=== PATIENT | male | born 1970 | race Caucasian/White ===

== ENCOUNTER 2018-08-09 18:46 | Emergency (ER) | payer BC ==
--- NOTE | 2018-08-09 19:50 | ED ---
Neurological HPI - HPI Summary HPI Summary: This patient is a 48 year old M presenting to [facility] with a chief complaint of his legs giving out at 15:00 today. He was jogging from his mailbox back to his house (about 100 feet) when both legs gave out on him. He fell, landed on his right shoulder, and did a somersault. Patient reports that it happened so fast that he doesnt know where on the shoulder he landed. 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 That time, he his AC joint. He reports being regularly active, playing football in the backyard with his sons. Patient reports right shoulder pain and diarrhea the last couple of days. Patient denies numbness, numbness in extremities, weakness , difficulty ambulating, difficulty with speech, ringing in ears, imbalance, drinking a lot of diet soda, recent head trauma, visual changes, and a headache. Patient reports a PMHx of a slight heart murmur. Patient reports a FHx of early onset Alzheimers and strokes. - History of Current Complaint Chief Complaint: EDNeurologicalDeficit Stated Complaint: FALL/RT SHLDR PAIN Time Seen by Provider: 08/09/18 19:36 Hx Obtained From: Patient Onset/Duration: Sudden Onset, Resolved Current Severity: None Pain Intensity: 8 Pain Scale Used: 0-10 Numeric Associated Signs and Symptoms: Negative: Unsteady Gait, Headache, Weakness, Numbness, Trauma: Recent - Allergy/Home Medications Allergies/Adverse Reactions: Allergies Allergy/AdvReac Type Severity Reaction Status Date / Time No Known Allergies Allergy Verified 08/09/18 18:57 Home Medications: Home Medications Simvastatin TAB(NF) [Zocor 20 MG (NF)] 40 mg PO DAILY 08/09/18 [History Confirmed 08/09/18] PMH/Surg Hx/FS Hx/Imm Hx Endocrine/Hematology History: Denies: Hx Diabetes Cardiovascular History: Reports: Other Cardiovascular Problems/Disorders - Slight heart murmur Infectious Disease History: No Infectious Disease History: Denies: Traveled Outside the [place] in Last 30 Days - Family History Known Family History: Positive: Other - Alzheimer's and strokes. Denies MS - Social History Lives: With Family Alcohol Use: Occasionally Hx Substance Use: No Substance Use Type: Reports: None Review of Systems Positive: Other - Denies drinking a lot of diet soda Positive: Diarrhea Positive: Other - Rigth shoulder pain Neurological: Other - LE bilat collapsed. Denies difficulty ambulating, difficulty with speech, ringing in ears, imbalance, recent head trauma, and visual changes. Negative: Headache, Weakness, Numbness All Other Systems Reviewed And Are Negative: Yes Physical Exam - Summary Physical Exam Summary: Appearance: Well appearing, no pain distress Skin: Abrasion on the dorsal fifth metacarpal head. Head/face: normal Eyes: EOMI, KAYLEEN ENT: mucous membranes moist Neck: supple, non-tender Respiratory: CTA, breath sounds present Cardiovascular: RRR, pulses symmetrical Abdomen: non-tender, soft Bowel Sounds: present Musculoskeletal: Tender at right AC joint. Decreased strength due to pain in right shoulder. Neuro: normal, sensory motor intact, A&Ox3 GCS: 15 Triage Information Reviewed: Yes Vital Signs On Initial Exam: Initial Vitals Temp Pulse Resp BP Pulse Ox 98.2 F 69 16 139/95 99 08/09/18 18:52 08/09/18 18:52 08/09/18 18:52 08/09/18 18:52 08/09/18 18:52 Vital Signs Reviewed: Yes Diagnostics - Vital Signs Vital Signs Temp Pulse Resp BP Pulse Ox 08/09/18 18:52 98.2 F 69 16 139/95 99 - Laboratory Result Diagrams: 08/09/18 19:48 08/09/18 19:48 Lab Statement: Any lab studies that have been ordered have been reviewed, and results considered in the medical decision making process. - Radiology Shoulder X-Ray Radiology Interpretation Completed By: ED Physician Summary of Radiographic Findings: 21:16. AC separation. Pending official report. - CT Head CT CT Interpretation Completed By: ED Physician Summary of CT Findings: 21:17. No acute findings. Pending official report. Brain CT CT Interpretation Completed By: ED Physician Summary of CT Findings: 21:17. No acute findings. Pending official report. Course/Dx - Course Course Of Treatment: Nurse's not reviewed. Before meals separation on x-ray. Sling applied by me. Extremity neurovascularly intact. Neurologic exam is normal with normal DTRs and the patellar tendons, normal gait and normal strength and sensation. CT brain negative. Follow-up with primary care physician for ongoing evaluation. - Differential Dx Differential Diagnoses Neuro: Positive: Other - MS, myasthenia gravis, electrolyte abnormality, aspartamine toxicity - Diagnoses Provider Diagnoses: Acromioclavicular separation, Weakness Discharge - Sign-Out/Discharge Documenting (check all that apply): Patient Departure - D/C - Discharge Plan Condition: Improved Disposition: HOME Patient Education Materials: Acromioclavicular Separation (ED), Weakness (ED) Referrals: [facility] [Outside] [facility] [place] [facility]FERR[facility] [Outside] Additional Instructions: Sling for comfort. Ice to area of sore shoulder. Weight-bear as tolerated. Tylenol, ibuprofen as needed for discomfort. Follow-up with family doctor as soon as possible to evaluate leg weakness. Referral line has been provided to you. [facility] can also provide quick follow-up. - Billing Disposition and Condition Condition: IMPROVED Disposition: Home - Attestation Statements Document Initiated by Wil: Yes Documenting Scribe: Kavon Rocha Provider For Whom Marioe is Documenting (Include Credential): Hank Gan MD Scribe Attestation: IKavon, scribed for Hank Gan MD on 08/10/18 at 0118. Scribe Documentation Reviewed: Yes Provider Attestation: The documentation as recorded by the Kavon madrid accurately reflects the service I personally performed and the decisions made by me, Hank Gan MD Status of Scribmichael Document: Viewed
[2018-08-09 20:04] LABS: ABS Basophils 0.1 10^3/ul (0-0.2); ABS Eosinophils 0.1 10^3/ul (0-0.6); ABS Lymphocytes 1.5 10^3/ul (1.0-4.8); ABS Monocytes 0.7 10^3/ul (0-0.8); ABS Neutrophils 8.5 10^3/ul (1.5-7.7); ABS Nucleated RBC 0 10^3/ul; Eosinophil % 0.5 %; Hematocrit 46 % (42-52); Hemoglobin 15.7 g/dl (14.0-18.0); Lymphocyte % 13.9 %; Mean Corpuscular HGB Conc 34 g/dl (31-36); Mean Corpuscular Hemoglobin 30 pg (27-31); Mean Corpuscular Volume 89 fL (80-94); Mean Platelet Volume 7.2 fL (7.4-10.4); Nucleated Red Blood Cells % 0; Platelet Count 206 10^3/ul (150-450); Red Blood Count 5.18 10^6/ul (4.00-5.40); Red Cell Distribution Width 13 % (10.5-15); White Blood Count 10.7 10^3/ul (3.5-10.8)
[2018-08-09 20:21] LABS: Albumin 4.7 g/dL (3.2-5.2); Albumin/Globulin Ratio 1.7 (1-3); BUN/Creatinine Ratio 12.4 (8-20); Calcium 9.6 mg/dL (8.6-10.3); EGFR Non-African American 74.8 (>60); Globulin 2.7 g/dL (2-4); Magnesium 1.9 mg/dL (1.9-2.7); Phosphorus 3.1 mg/dL (2.5-5.0); Potassium 4.1 mmol/L (3.5-5.0); Total Bilirubin 0.5 mg/dL (0.2-1.0); Total Protein 7.4 g/dL (6.4-8.9)
[2018-08-09] MEDS ORDERED: HYDROcodone/ACETAMIN 5-325 MG* 1 TAB PO ONE (20:39)
[2018-08-09] MEDS ORDERED: Naproxen TAB* 250 MG PO ONE (20:39)
[2018-08-09 21:56] VITALS: BP 0/0
== END 2018-08-09 21:54 | disposition home or self-care (01) ==
LOC: ED 18:46
DX: S43.101A Unspecified dislocation of right acromioclavicular joint, initial encounter (principal); W19.XXXA Unspecified fall, initial encounter; Y93.89 Activity, other specified; Y92.007 Garden or yard of unspecified non-institutional (private) residence as the place of occurrence of the external cause; Z82.3 Family history of stroke; R01.1 Cardiac murmur, unspecified; R53.1 Weakness
CPT/HCPCS: 36415; 70450; 80053; 82550; 83735; 84100; 85025; 99282; A9270-GY